=== PATIENT | male | born 1995 | race African-American/Black ===

== ENCOUNTER 2017-06-14 16:29 | Emergency (ER) | payer OTHER ==
[~2017-06-14] VITALS: Ht 175.2 cm; Wt 90.7 kg
[~2017-06-14 16:29] MED LIST: AMOXIL500 MG PO; CLARITIN10 MG PO; DONNATAL1 TAB PO; LOMOTIL 0.025 M1 TAB PO; NKHM; PHENERGAN W/ DE30 ML PO; VENTOLIN H0.09 MG/AC INH; ZITHROMAX Z PA250 MG PO; ZOFRAN ODT4 MG SL; Zofran4 MG PO; [UNRECOGNIZED DRUG - OTHER] OT
[2017-06-14 16:30] VITALS: BP 124/60
[2017-06-14] MEDS ORDERED: FLONASE ALLERG9.9 ML NAS (17:15)
[2017-06-14] MEDS ORDERED: OMNICEF300 MG PO (17:15)
[2017-06-14] MEDS ORDERED: HYDROCOD-HOMAT1 EACH PO (17:46)
[2017-06-14] MEDS ORDERED: CLARITIN10 MG PO (17:46)
== END 2017-06-14 17:52 | disposition home or self-care (01) ==
LOC: ED 16:29
DX: R05 Cough (principal); H66.91 Otitis media, unspecified, right ear

== ENCOUNTER 2017-12-11 08:51 | Emergency (ER) | payer SELFPAY ==
[~2017-12-11] VITALS: Ht 177.8 cm; Wt 101.2 kg
[~2017-12-11 08:51] MED LIST changes: +FLONASE ALLERG9.9 ML NAS; +HYDROCOD-HOMAT1 EACH PO; +OMNICEF300 MG PO
[2017-12-11] MEDS ORDERED: PREDNISONE10 MG PO (09:08)
[2017-12-11] MEDS ORDERED: CLARITIN10 MG PO (09:08)
[2017-12-11] MEDS ORDERED: ROBITUSSIN DM 105 ML PO (09:08)
[2017-12-11] MEDS ORDERED: FLONASE ALLERG9.9 ML NAS (09:08)
[2017-12-11 10:12] VITALS: BP 132/57
== END 2017-12-11 10:12 | disposition home or self-care (01) ==
LOC: ED 08:51
DX: J20.9 Acute bronchitis, unspecified (principal); R03.0 Elevated blood-pressure reading, without diagnosis of hypertension

== ENCOUNTER 2018-12-29 22:20 | Emergency (ER) | payer OTHER ==
[~2018-12-29] VITALS: Ht 180.3 cm; Wt 102.1 kg
[~2018-12-29 22:20] MED LIST changes: +PREDNISONE10 MG PO; +ROBITUSSIN DM 105 ML PO
[2018-12-29 22:21] VITALS: BP 133/69
[2018-12-29] MEDS ORDERED: AUGMENTIN 875875 MG PO (23:39)
[2019-02-24] MEDS ORDERED: PREDNISONE20 M1 PO (15:24)
== END 2018-12-29 23:57 | disposition home or self-care (01) ==
LOC: ED 22:20
DX: J02.0 Streptococcal pharyngitis (principal); G43.909 Migraine, unspecified, not intractable, without status migrainosus; Z79.899 Other long term (current) drug therapy

== ENCOUNTER 2019-07-02 18:26 | Emergency (ER) | payer OTHER ==
[~2019-07-02] VITALS: Wt 104.3 kg
[~2019-07-02 18:26] MED LIST changes: +AUGMENTIN 875875 MG PO; +PREDNISONE20 M1 PO
[2019-07-02 18:27] VITALS: BP 116/54
[2019-07-02] MEDS ORDERED: MONTELUKAST SOD10 MG PO (18:30)
[2019-07-02 19:14] LABS: BILIRUBIN NEGATIVE (NEGATIVE); BLOOD NEGATIVE (NEGATIVE); CLARITY CLEAR (CLEAR); COLOR YELLOW (YELLOW); GLUCOSE 1+ (NEGATIVE); KETONE NEGATIVE (NEGATIVE); LEUKO ESTERASE NEGATIVE (NEGATIVE); NITRITE NEGATIVE (NEGATIVE); UROBILINOGEN 0.2 E.U./dl (0.2-1.0)
[2019-07-02 19:22] LABS: BASO % 0.4 % (0.0-1.0); EOS # 0.3 10*3/uL (0.0-0.4); EOS % 3.1 % (1.0-4.0); HEMATOCRIT 46.1 % (42.0-52.0); HEMOGLOBIN 15.7 g/dl (14.0-18.0); LYMPH # 2.7 10*3/uL (1.3-4.4); MEAN CELL VOLUME 83.5 fl (80.0-94.0); MEAN CORPUSCULAR HGB 28.4 pg (27.0-31.0); MEAN CORPUSCULAR HGB CONC 34.1 g/dl (33.0-37.0); MEAN PLATELET VOLUME 9.6 fl (9.6-12.3); MONO # 0.8 10*3/uL (0.1-1.0); MONO % 7.3 % (3.0-9.0); NEUT # 6.5 10*3/uL (2.3-7.9); NEUT % 62.8 % (47.0-73.0); PLATELET COUNT AUTOMATED 269 10*3/uL (130-400); RED BLOOD COUNT 5.52 10*6/uL (4.50-5.90); RED CELL DISTRI WIDTH 13.5 % (0-14.5); WHITE BLOOD COUNT 10.4 10*3/uL (4.8-10.8)
[2019-07-02 19:25] LABS: WBC 16-20 wbc/hpf (0-5)
[2019-07-02 19:26] LABS: BACTERIA 1+
[2019-07-02 19:39] LABS: ALBUMIN 4.4 gm/dl (3.1-4.5); ALKALINE PHOSPHATASE 65 U/L (45-117); BUN 9 mg/dl (7-24); CHLORIDE 107 mmol/L (98-107); CREATININE 0.91 mg/dL (0.70-1.30); LIPASE 175 U/L (73-393); POTASSIUM 3.8 mmol/L (3.5-5.1); SGOT/AST 22 IU/L (3-35); SGPT/ALT 48 U/L (12-78); SODIUM 139 mmol/L (136-145); TOTAL PROTEIN 7.7 gm/dL (6.4-8.2)
[2019-07-02] MEDS ORDERED: ZOFRAN4 MG PO (20:59)
== END 2019-07-02 21:35 | disposition home or self-care (01) ==
LOC: ED 18:26
PROVIDERS: Physician Assistant
DX: R81 Glycosuria (principal); R10.11 Right upper quadrant pain; R11.2 Nausea with vomiting, unspecified; R19.7 Diarrhea, unspecified; Z79.899 Other long term (current) drug therapy

== ENCOUNTER 2019-07-11 16:05 | Emergency (ER) | payer OTHER ==
[~2019-07-11] VITALS: Ht 177.8 cm; Wt 106.6 kg
[~2019-07-11 16:05] MED LIST changes: +MONTELUKAST SOD10 MG PO; +ZOFRAN4 MG PO
[2019-07-11 16:06] VITALS: BP 106/63
[2019-07-11] MEDS ORDERED: AUGMENTIN 875-875 MG PO (17:07)
== END 2019-07-11 17:12 | disposition home or self-care (01) ==
LOC: ED 16:05
DX: J06.9 Acute upper respiratory infection, unspecified (principal); R21 Rash and other nonspecific skin eruption; H92.09 Otalgia, unspecified ear; Z79.899 Other long term (current) drug therapy

== ENCOUNTER → 2019-07-26 | Outpatient (CLI) | payer OTHER ==
[~2019-07-26] MED LIST changes: +AUGMENTIN 875-875 MG PO
== END | disposition home or self-care (01) ==
LOC: US 09:50
DX: F45.21 Hypochondriasis (principal)

== ENCOUNTER 2019-11-06 16:16 | Emergency (ER) | payer OTHER ==
[~2019-11-06] VITALS: Ht 177.8 cm; Wt 108.9 kg
[2019-11-06 16:25] VITALS: BP 134/76
== END 2019-11-06 18:49 | disposition home or self-care (01) ==
LOC: ED 16:16
DX: S86.911A Strain of unspecified muscle(s) and tendon(s) at lower leg level, right leg, initial encounter (principal); Z79.899 Other long term (current) drug therapy; X58.XXXA Exposure to other specified factors, initial encounter; Y93.89 Activity, other specified; Y92.89 Other specified places as the place of occurrence of the external cause; Y99.8 Other external cause status

== ENCOUNTER 2019-11-11 16:21 | Emergency (ER) | payer OTHER ==
[~2019-11-11] VITALS: Ht 175.2 cm; Wt 108.2 kg
[2019-11-11 16:47] VITALS: BP 137/90
[2019-11-11 17:56] LABS: BILIRUBIN 1+ (NEGATIVE); BLOOD NEGATIVE (NEGATIVE); CLARITY CLEAR (CLEAR); COLOR YELLOW (YELLOW); GLUCOSE NEGATIVE (NEGATIVE); KETONE NEGATIVE (NEGATIVE); PH 6.5 (5.0-9.0); SPECIFIC GRAVITY 1.025 (1.005-1.030)
[2019-11-11 17:57] LABS: BACTERIA 1+; LEUKO ESTERASE TRACE (NEGATIVE); MUCOUS 2+; NITRITE NEGATIVE (NEGATIVE); UROBILINOGEN 0.2 E.U./dl (0.2-1.0)
[2019-11-13 21:05] LABS: GONOCOCCUS BY NAA Negative (Negative)
== END 2019-11-11 18:12 | disposition home or self-care (01) ==
LOC: ED 16:21
PROVIDERS: Nurse Practitioner Family
DX: Z20.2 Contact with and (suspected) exposure to infections with a predominantly sexual mode of transmission (principal); Z79.899 Other long term (current) drug therapy

== ENCOUNTER 2020-02-06 19:44 | Emergency (ER) | payer OTHER ==
[~2020-02-06] VITALS: Ht 177.8 cm; Wt 108.9 kg
[2020-02-06 20:50] VITALS: BP 136/78
[2020-02-10 14:05] LABS: GONOCOCCUS BY NAA Negative (Negative)
== END 2020-02-06 21:00 | disposition home or self-care (01) ==
LOC: ED 19:44
PROVIDERS: Physician Assistant
DX: Z20.2 Contact with and (suspected) exposure to infections with a predominantly sexual mode of transmission (principal); Z79.899 Other long term (current) drug therapy

== ENCOUNTER 2020-03-11 21:28 | Emergency (ER) | payer OTHER ==
[~2020-03-11] VITALS: Ht 177.8 cm; Wt 106.6 kg
[2020-03-11 21:33] VITALS: BP 142/76
== END 2020-03-12 00:25 | disposition home or self-care (01) ==
LOC: ED 21:28
DX: S06.0X1A Concussion with loss of consciousness of 30 minutes or less, initial encounter (principal); G43.909 Migraine, unspecified, not intractable, without status migrainosus; Z79.899 Other long term (current) drug therapy; V29.9XXA Motorcycle rider (driver) (passenger) injured in unspecified traffic accident, initial encounter; Y93.89 Activity, other specified; Y92.828 Other wilderness area as the place of occurrence of the external cause; Y99.8 Other external cause status

== ENCOUNTER → 2020-06-12 | Outpatient (CLI) | payer OTHER | END | disposition home or self-care (01) | LOC: COVID19 02:44 | PROVIDERS: ATTEND Family Medicine | DX: Z20.828 Contact with and (suspected) exposure to other viral communicable diseases (principal) ==

== ENCOUNTER → 2020-07-22 | Outpatient (CLI) | payer OTHER | END | disposition home or self-care (01) | LOC: COVID19 04:56 | PROVIDERS: ATTEND Family Medicine | DX: Z20.828 Contact with and (suspected) exposure to other viral communicable diseases (principal) ==

== ENCOUNTER 2021-03-14 07:04 | Emergency (ER) | payer OTHER ==
[~2021-03-14] VITALS: Ht 177.8 cm; Wt 108.9 kg
[2021-03-14 07:14] VITALS: BP 129/71
== END 2021-03-14 07:50 | disposition home or self-care (01) ==
LOC: ED 07:04
DX: S92.252A Displaced fracture of navicular [scaphoid] of left foot, initial encounter for closed fracture (principal); S93.402A Sprain of unspecified ligament of left ankle, initial encounter; G43.909 Migraine, unspecified, not intractable, without status migrainosus; Z79.899 Other long term (current) drug therapy; X58.XXXA Exposure to other specified factors, initial encounter; Y93.89 Activity, other specified; Y92.89 Other specified places as the place of occurrence of the external cause; Y99.8 Other external cause status

== ENCOUNTER → 2021-03-26 | Outpatient (CLI) | payer OTHER | END | disposition home or self-care (01) | LOC: MRI 03-22 13:00 | PROVIDERS: ATTEND Orthopaedic Surgery | DX: M20.12 Hallux valgus (acquired), left foot (principal); M25.872 Other specified joint disorders, left ankle and foot; S92.252D Displaced fracture of navicular [scaphoid] of left foot, subsequent encounter for fracture with routine healing; X58.XXXD Exposure to other specified factors, subsequent encounter ==

== ENCOUNTER 2021-05-20 07:57 | Emergency (ER) | payer OTHER ==
[~2021-05-20] VITALS: Wt 113.4 kg
[2021-05-20 08:06] VITALS: BP 134/80
[2021-05-20 08:44] LABS: BILIRUBIN Negative (Negative); BLOOD Negative (Negative); CLARITY Clear (Clear); COLOR Yellow (Yellow); GLUCOSE Negative (Negative); KETONE Negative (Negative); LEUKO ESTERASE 1+ (Negative); NITRITE Negative (Negative); PH 6.5 (4.5-8.0); SPECIFIC GRAVITY 1.015 (1.001-1.030); UROBILINOGEN 0.2 E.U./dl (0.0-1.0)
[2021-05-20 08:59] LABS: BACTERIA 1+; EPITHELIAL CELLS 0-2; RBC 0-2 rbc/hpf (0-2)
== END 2021-05-20 09:23 | disposition home or self-care (01) ==
LOC: ED 07:57
PROVIDERS: Student in an Organized Health Care Education/Training Program
DX: Z20.2 Contact with and (suspected) exposure to infections with a predominantly sexual mode of transmission (principal); Z79.899 Other long term (current) drug therapy

== ENCOUNTER → 2021-06-03 | Outpatient (CLI) | payer OTHER | END | disposition home or self-care (01) | LOC: COVID19 17:02 | PROVIDERS: ATTEND Student in an Organized Health Care Education/Training Program | DX: Z11.52 Encounter for screening for COVID-19 (principal) ==

== ENCOUNTER 2021-06-25 11:16 | Emergency (ER) | payer OTHER ==
[~2021-06-25] VITALS: Ht 177.8 cm; Wt 113.4 kg
[2021-06-25 11:22] VITALS: BP 135/86
== END 2021-06-25 15:04 | disposition left against medical advice (07) ==
LOC: ED 11:16
DX: M54.59 Other low back pain (principal); R11.10 Vomiting, unspecified; Z53.21 Procedure and treatment not carried out due to patient leaving prior to being seen by health care provider

== ENCOUNTER 2021-06-28 13:14 | Emergency (ER) | payer OTHER ==
[~2021-06-28] VITALS: Ht 175.2 cm; Wt 113.4 kg
[2021-06-28 13:44] VITALS: BP 118/84
== END 2021-06-28 18:26 | disposition left against medical advice (07) ==
LOC: ED 13:14
DX: R50.9 Fever, unspecified (principal); Z53.21 Procedure and treatment not carried out due to patient leaving prior to being seen by health care provider

== ENCOUNTER → 2021-06-29 | Outpatient (CLI) | payer OTHER | END | disposition home or self-care (01) | LOC: COVID19 16:33 | PROVIDERS: ATTEND Student in an Organized Health Care Education/Training Program | DX: Z11.52 Encounter for screening for COVID-19 (principal) ==

== ENCOUNTER 2021-07-01 11:33 | Emergency (ER) | payer OTHER | END 2021-07-01 12:32 | disposition left against medical advice (07) | LOC: ED 11:33 | DX: R06.02 Shortness of breath (principal); Z53.21 Procedure and treatment not carried out due to patient leaving prior to being seen by health care provider ==

== ENCOUNTER → 2021-07-01 | Outpatient (CLI) | payer OTHER | END | disposition home or self-care (01) | LOC: COVID19 15:36 | PROVIDERS: ATTEND Internal Medicine | DX: U07.1 COVID-19 (principal) ==

== ENCOUNTER → 2021-07-01 | Outpatient (CLI) | payer OTHER | END | disposition home or self-care (01) | LOC: RAD 12:13 | PROVIDERS: ATTEND Family Medicine | DX: Z20.822 Contact with and (suspected) exposure to COVID-19 (principal) ==

== ENCOUNTER → 2021-08-18 | Outpatient (CLI) | payer OTHER | END | disposition home or self-care (01) | LOC: COVID19 17:39 | PROVIDERS: ATTEND Internal Medicine | DX: Z11.52 Encounter for screening for COVID-19 (principal) ==

== ENCOUNTER → 2022-09-16 | Outpatient (CLI) | payer OTHER | END | disposition home or self-care (01) | LOC: RAD 11:45 | PROVIDERS: ATTEND Internal Medicine | DX: R76.11 Nonspecific reaction to tuberculin skin test without active tuberculosis (principal) ==

== ENCOUNTER → 2023-03-04 | Outpatient (CLI) | payer OTHER | END | disposition home or self-care (01) | LOC: US 01:51 | PROVIDERS: ATTEND Internal Medicine | DX: K76.0 Fatty (change of) liver, not elsewhere classified (principal); N20.0 Calculus of kidney ==

== ENCOUNTER → 2023-03-29 | Outpatient (CLI) | payer OTHER | END | disposition home or self-care (01) | LOC: MRI 01:32 | PROVIDERS: ATTEND Internal Medicine | DX: K76.0 Fatty (change of) liver, not elsewhere classified (principal); R93.2 Abnormal findings on diagnostic imaging of liver and biliary tract ==

== ENCOUNTER 2023-10-09 18:11 | Emergency (ER) | payer SELFPAY ==
[~2023-10-09] VITALS: Ht 177.8 cm; Wt 117.9 kg
[2023-10-09 18:51] VITALS: BP 136/82
[2023-10-09] MEDS ORDERED: Motrin,Rufen800 MG PO (21:28)
== END 2023-10-09 21:39 | disposition home or self-care (01) ==
LOC: ED 18:11
DX: S49.92XA Unspecified injury of left shoulder and upper arm, initial encounter (principal); G43.909 Migraine, unspecified, not intractable, without status migrainosus; F90.9 Attention-deficit hyperactivity disorder, unspecified type; Z87.442 Personal history of urinary calculi; W00.0XXA Fall on same level due to ice and snow, initial encounter; Y93.89 Activity, other specified; Y92.89 Other specified places as the place of occurrence of the external cause; Y99.8 Other external cause status

== ENCOUNTER 2023-12-10 07:10 | Emergency (ER) | payer OTHER ==
[~2023-12-10] VITALS: Ht 180.3 cm; Wt 110.2 kg
[~2023-12-10 07:10] MED LIST changes: +Motrin,Rufen800 MG PO
[2023-12-10 07:17] VITALS: BP 121/95
[2023-12-10] MEDS ORDERED: PHENTERMINE H37.5 M1 PO (07:21)
[2023-12-10] MEDS ORDERED: CYCLOBENZAPRINE10 MG PO (07:29)
[2023-12-10] MEDS ORDERED: MELOXICAM15 MG PO (07:29)
[2023-12-10] MEDS ORDERED: Cyclobenzaprine Hydrochlorid 10 MG TAB PO ONE (07:30)
[2023-12-10] MEDS ORDERED: IBUPROFEN 800 MG TAB PO ONE (07:30)
== END 2023-12-10 07:59 | disposition home or self-care (01) ==
LOC: ED 07:10
DX: M62.830 Muscle spasm of back (principal); F90.9 Attention-deficit hyperactivity disorder, unspecified type; Z87.442 Personal history of urinary calculi

== ENCOUNTER 2024-06-04 09:40 | Emergency (ER) | payer OTHER ==
[~2024-06-04 09:40] MED LIST changes: +CYCLOBENZAPRINE10 MG PO; +MELOXICAM15 MG PO; +PHENTERMINE H37.5 M1 PO
== END 2024-06-04 10:28 | disposition left against medical advice (07) ==
LOC: ED 09:40
DX: M79.606 Pain in leg, unspecified (principal); Z88.0 Allergy status to penicillin; Z53.21 Procedure and treatment not carried out due to patient leaving prior to being seen by health care provider

== ENCOUNTER 2024-06-05 02:21 | Emergency (ER) | payer OTHER ==
[~2024-06-05] VITALS: Ht 177.8 cm; Wt 113.4 kg
[2024-06-05 02:37] VITALS: BP 122/75
== END 2024-06-05 04:04 | disposition home or self-care (01) ==
LOC: ED 02:21
DX: S86.912A Strain of unspecified muscle(s) and tendon(s) at lower leg level, left leg, initial encounter (principal); F90.9 Attention-deficit hyperactivity disorder, unspecified type; Z87.442 Personal history of urinary calculi; W17.89XA Other fall from one level to another, initial encounter; Y93.89 Activity, other specified; Y92.89 Other specified places as the place of occurrence of the external cause; Y99.8 Other external cause status; Z88.0 Allergy status to penicillin

== ENCOUNTER → 2024-07-03 | Outpatient (CLI) | payer OTHER | END | disposition home or self-care (01) | LOC: MRI 01:05 | PROVIDERS: ATTEND Orthopaedic Surgery | DX: S83.282A Other tear of lateral meniscus, current injury, left knee, initial encounter (principal); M22.42 Chondromalacia patellae, left knee; R60.0 Localized edema; X58.XXXA Exposure to other specified factors, initial encounter; Y93.89 Activity, other specified; Y92.89 Other specified places as the place of occurrence of the external cause; Y99.8 Other external cause status ==